=== PATIENT | male | born 1990 | race Caucasian/White ===

== ENCOUNTER 2023-01-23 18:19 | Emergency (ER) | payer OTHER ==
[~2023-01-23] VITALS: Ht 172.7 cm; Wt 74.8 kg
[2023-01-23 18:41] LABS: BASO % 0.4 % (0.0-1.0); EOS # 0.1 10*3/uL (0.0-0.4); EOS % 0.7 % (1.0-4.0); LYMPH # 2.3 10*3/uL (1.3-4.4); LYMPH % 27.9 % (27.0-41.0); MEAN CELL VOLUME 93.1 fl (80.0-94.0); MEAN CORPUSCULAR HGB 32.2 pg (27.0-31.0); MEAN CORPUSCULAR HGB CONC 34.5 g/dl (33.0-37.0); MEAN PLATELET VOLUME 8.9 fl (9.6-12.3); MONO # 0.7 10*3/uL (0.1-1.0); MONO % 8.7 % (3.0-9.0); NEUT # 5.1 10*3/uL (2.3-7.9); NEUT % 62.1 % (47.0-73.0); PLATELET COUNT AUTOMATED 291 10*3/uL (130-400); RED BLOOD COUNT 4.51 10*6/uL (4.50-5.90); RED CELL DISTRI WIDTH 12.8 % (0-14.5); WHITE BLOOD COUNT 8.2 10*3/uL (4.8-10.8)
[2023-01-23 19:05] LABS: ALKALINE PHOSPHATASE 108 U/L (46-116); BUN 5 mg/dl (9-23); CHLORIDE 108 mmol/L (98-107); POTASSIUM 3.4 mmol/L (3.4-5.1); SGPT/ALT 30 U/L (10-49)
[2023-01-23] MEDS ORDERED: ARIPIPRAZOLE10 MG PO (19:16)
[2023-01-23] MEDS ORDERED: ATARAX,VISTARIL10 MG PO (19:16)
[2023-01-23] MEDS ORDERED: CLINDAMYCIN HC300 MG PO (23:51)
[2023-01-23] MEDS ORDERED: IBU800 M2 PO (23:51)
== END 2023-01-23 21:38 | disposition home or self-care (01) ==
LOC: ED 18:19 → EDBD 18:45 → ED 21:38
PROVIDERS: Physician Assistant
DX: E86.0 Dehydration (principal); F32.A Depression, unspecified; Z88.0 Allergy status to penicillin

== ENCOUNTER 2023-01-23 23:32 | Emergency (ER) | payer OTHER ==
[~2023-01-23] VITALS: Ht 175.2 cm; Wt 74.8 kg
[~2023-01-23 23:32] MED LIST: ARIPIPRAZOLE10 MG PO; ATARAX,VISTARIL10 MG PO
[2023-01-23] MEDS ORDERED: IBU800 M2 PO (23:51)
[2023-01-23] MEDS ORDERED: CLINDAMYCIN HC300 MG PO (23:51)
[2023-01-24 01:39] LABS: BASO % 0.3 % (0.0-1.0); EOS % 0.5 % (1.0-4.0); HEMATOCRIT 42.3 % (42.0-52.0); LYMPH # 2.2 10*3/uL (1.3-4.4); LYMPH % 28.3 % (27.0-41.0); MEAN CORPUSCULAR HGB 31.9 pg (27.0-31.0); MEAN CORPUSCULAR HGB CONC 34.3 g/dl (33.0-37.0); MEAN PLATELET VOLUME 8.9 fl (9.6-12.3); MONO # 0.6 10*3/uL (0.1-1.0); MONO % 7.8 % (3.0-9.0); NEUT # 4.8 10*3/uL (2.3-7.9); NEUT % 62.8 % (47.0-73.0); PLATELET COUNT AUTOMATED 274 10*3/uL (130-400); RED BLOOD COUNT 4.55 10*6/uL (4.50-5.90); RED CELL DISTRI WIDTH 12.9 % (0-14.5); WHITE BLOOD COUNT 7.7 10*3/uL (4.8-10.8)
[2023-01-24 02:04] LABS: ALKALINE PHOSPHATASE 96 U/L (46-116); BUN 5 mg/dl (9-23); CHLORIDE 107 mmol/L (98-107); CPK 468 U/L (34-171); POTASSIUM 3.5 mmol/L (3.4-5.1); SGPT/ALT 28 U/L (10-49); THYROID STIM HORMONE (HS) 0.378 uIU/ml (0.550-4.780); TOTAL PROTEIN 7.2 gm/dL (6.0-8.0)
[2023-01-24 02:05] LABS: ETHYL ALCOHOL < 3.0 mg/dl (<3)
[2023-01-24 05:48] LABS: BILIRUBIN Negative (Negative); BLOOD Negative (Negative); CLARITY Clear (Clear); COLOR Yellow (Yellow); GLUCOSE Negative (Negative); KETONE Negative (Negative); LEUKO ESTERASE Negative (Negative); NITRITE Negative (Negative); SPECIFIC GRAVITY <= 1.005 (1.001-1.030); UROBILINOGEN 0.2 E.U./dl (0.0-1.0)
[2023-01-24 06:47] LABS: BACTERIA TRACE
[2023-01-24 07:38] LABS: URINE AMPHETAMINES Negative (1000ng/ml); URINE BARBITURATES Negative (200ng/ml); URINE BENZODIAZEPINES Negative (200ng/ml); URINE CANNABINOIDS (THC) Positive (50ng/ml); URINE COCAINE Positive (300ng/ml); URINE METHADONE Negative (300ng/ml); URINE OPIATES Negative (300ng/ml); URINE PHENCYCLIDINE Negative (25ng/ml)
== END 2023-01-24 12:19 | disposition home or self-care (01) ==
LOC: ED 23:32
PROVIDERS: Emergency Medicine
DX: F31.9 Bipolar disorder, unspecified (principal); K08.89 Other specified disorders of teeth and supporting structures; Z88.0 Allergy status to penicillin; F14.10 Cocaine abuse, uncomplicated; F12.10 Cannabis abuse, uncomplicated; Z20.822 Contact with and (suspected) exposure to COVID-19; Z79.899 Other long term (current) drug therapy